=== PATIENT | female | born 1960 | race African-American/Black ===

== ENCOUNTER 2017-03-26 13:08 | Emergency (ER) | payer OTHER ==
[~2017-03-26] VITALS: Ht 165.1 cm; Wt 99.8 kg
--- NOTE | ~2017-03-26 | CR127 ---
[facility] A Service of [facility] RADIOLOGY TEXT RESULTS PATIENT: BORA NOLASCO LOCATION: CFTX : 64 UNIT #: [id number] AGE: [address]: Cristina Woodall SEX: F ORDER DR: [id number] [facility] [address] [place], [place] [address] [id number] E MR#: [id number] Acc #: [id number] NAME: BORA NOLASCO : 1960 SEX: F STUDY DATE/TIME: 03/26/2017 14:48 UNIT: [facility] ROOM: STUDY DESCRIPTION: CR Foot Complete Min 3 View Rt Attending Physician: Cristina Woodall Pa-C Ordering Physician: Ed Doctor [id number] [facility] Primary Care Physician: Ashia Diaz M.D. MEDICAL IMAGING REPORT This report is preliminary unless electronic signature is present EXAM Right foot 3 views HISTORY Foot pain and swelling for 2 days. No injury. FINDINGS Three views of the right foot demonstrate satisfactory bone alignment. No fracture, joint space narrowing or dislocation. Mild degenerative changes in the midfoot. Tiny posterior calcaneal spur. IMPRESSION No acute findings. Dictated by... Ming Bishop M.D. THIS IS AN ELECTRONICALLY VERIFIED REPORT Ming Bishop M.D. at 03/27/2017 3:27 PM DFL/deepthi TD: 03/27/2017 09:44 JOB #: [id number] MEDICAL IMAGING REPORT Page 1 of 1 COPY
--- NOTE | ~2017-03-26 | CR21 ---
[facility] A Service of [facility] RADIOLOGY TEXT RESULTS PATIENT: BORA NOLASCO LOCATION: CFTX : 64 UNIT #: [id number] AGE: [address]: Cristina Woodall SEX: F ORDER DR: [id number] [facility] [address], [place] [address] [id number] E MR#: [id number] Acc #: [id number] NAME: BORA NOLASCO : 1960 SEX: F STUDY DATE/TIME: 03/26/2017 14:46 UNIT: [facility] ROOM: STUDY DESCRIPTION: CR Ankle Min 3 Views Rt Attending Physician: Cristina Woodall Pa-C Ordering Physician: Ed Anmol Moore M.D. Primary Care Physician: Ashia Diaz M.D. MEDICAL IMAGING REPORT This report is preliminary unless electronic signature is present EXAM Right ankle 3 views. HISTORY Ankle pain and swelling for 2 days. No injury. FINDINGS 3 views of the right ankle demonstrate satisfactory bone alignment. Mild soft tissue swelling over the lateral malleolus. No fracture, joint space narrowing or dislocation. Tiny posterior calcaneal spur. Mild degenerative changes in the midfoot. IMPRESSION 1. No fracture. 2. Soft tissue swelling over the lateral malleolus. Dictated by... Ming Bishop M.D. THIS IS AN ELECTRONICALLY VERIFIED REPORT Ming Bishop M.D. at 03/27/2017 3:27 PM DFL/gz TD: 03/27/2017 09:35 JOB #: [id number] MEDICAL IMAGING REPORT Page 1 of 1 COPY
[~2017-03-26 13:08] MED LIST: BACTRIM DS TABL1 TAB PO; CLINORIL PO; GLUCOPHAGE XR500 MG PO; SYNTHROID PO
== END 2017-03-26 16:06 | disposition home or self-care (01) ==
LOC: CED 13:08 → CFTX 13:08
DX: M77.9 Enthesopathy, unspecified (principal); E11.9 Type 2 diabetes mellitus without complications; F17.200 Nicotine dependence, unspecified, uncomplicated; Z88.8 Allergy status to other drugs, medicaments and biological substances
CPT/HCPCS: 73610; 73630; 99283